=== PATIENT | female | born 1985 | race Caucasian/White ===

== ENCOUNTER 2016-09-27 14:37 | Emergency (ER) | payer OTHER ==
[~2016-09-27] VITALS: Ht 162.6 cm; Wt 117.9 kg
[2016-09-27 17:11] VITALS: BP 127/70
[2016-09-27] MEDS ORDERED: IBUPROFEN 800800 M1 PO (17:19)
[2016-09-27] MEDS ORDERED: NORFLEX100 MG PO (17:19)
== END 2016-09-27 18:15 | disposition home or self-care (01) ==
LOC: ER 14:37
DX: S16.1XXA Strain of muscle, fascia and tendon at neck level, initial encounter (principal); S39.012A Strain of muscle, fascia and tendon of lower back, initial encounter; S46.912A Strain of unspecified muscle, fascia and tendon at shoulder and upper arm level, left arm, initial encounter; E03.9 Hypothyroidism, unspecified; F10.99 Alcohol use, unspecified with unspecified alcohol-induced disorder; V49.40XA Driver injured in collision with unspecified motor vehicles in traffic accident, initial encounter; Y93.89 Activity, other specified; Y92.89 Other specified places as the place of occurrence of the external cause; Y99.8 Other external cause status

== ENCOUNTER 2017-11-04 12:00 | Emergency (ER) | payer OTHER ==
[~2017-11-04] VITALS: Ht 162.6 cm; Wt 117.9 kg
[~2017-11-04 12:00] MED LIST: IBUPROFEN 800800 M1 PO; NORFLEX100 MG PO
[2017-11-04] MEDS ORDERED: NAPROSYN500 MG PO (13:03)
[2017-11-04 13:54] VITALS: BP 131/91
== END 2017-11-04 13:54 | disposition home or self-care (01) ==
LOC: ER 12:00
DX: S83.8X2A Sprain of other specified parts of left knee, initial encounter (principal); E03.9 Hypothyroidism, unspecified; W18.40XA Slipping, tripping and stumbling without falling, unspecified, initial encounter; Y93.89 Activity, other specified; Y92.59 Other trade areas as the place of occurrence of the external cause; Y99.8 Other external cause status

== ENCOUNTER 2018-09-01 23:37 | Emergency (ER) | payer OTHER ==
[~2018-09-01] VITALS: Ht 162.6 cm; Wt 127.0 kg
[~2018-09-01 23:37] MED LIST changes: +NAPROSYN500 MG PO
[2018-09-02 01:05] LABS: URINE BILIRUBIN NEGATIVE (Negative); URINE BLOOD NEGATIVE (Negative); URINE CLARITY CLEAR; URINE COLOR YELLOW; URINE GLUCOSE-RANDOM* NEGATIVE (Negative); URINE KETONES NEGATIVE (Negative); URINE LEUKOCYTES-REFLEX NEGATIVE (Negative); URINE NITRITE-REFLEX NEGATIVE (Negative); URINE PROTEIN (DIPSTICK) NEGATIVE (Negative); URINE UROBILINOGEN 0.2 E.U./dl (0.2-1.0)
[2018-09-02 02:31] LABS: ABSOLUTE NEUTROPHILS 6.2 thou/uL (1.4-8.2); BASOPHILS 0.3 % (0.0-2.0); EOSINOPHILS 2.1 % (0.0-3.0); HEMATOCRIT 37.6 % (37.0-47.0); HEMOGLOBIN 12.2 gm/dL (12.0-15.0); LYMPHOCYTES 24.3 % (24.0-44.0); MCH 25.3 pg (26.0-34.0); MCHC 32.4 g/dL (28.0-37.0); MCV 78.2 fL (80.0-100.0); MONOCYTES 6.7 % (1.0-8.0); PLATELET COUNT 314 thou/uL (150-400); POLYS 66.6 % (36.0-66.0); RBC 4.82 mil/uL (4.20-5.00); RDW 15.1 % (10.5-14.5); WBC 9.3 thou/uL (4.0-11.0)
[2018-09-02 02:36] LABS: CALCIUM 9.5 mg/dL (8.5-10.1); CREATININE 0.8 mg/dL (0.6-1.0); POTASSIUM 3.7 mmol/L (3.5-5.1)
[2018-09-02 02:37] LABS: MAGNESIUM 1.9 mg/dL (1.8-2.4)
[2018-09-02 03:05] VITALS: BP 152/91
== END 2018-09-02 03:06 | disposition home or self-care (01) ==
LOC: ER 23:37
PROVIDERS: Emergency Medicine
DX: R60.0 Localized edema (principal); R20.2 Paresthesia of skin; E03.9 Hypothyroidism, unspecified